=== PATIENT | female | born 1945 | race Caucasian/White ===

== ENCOUNTER 2025-04-10 15:25 | Outpatient (AMB) | payer OTHER, SELFPAY ==
--- OUTSIDE RECORDS SUMMARY | 2025-04-10 15:30 | XMS_ITS | Encounter Summary ---
Author Organization [facility] Address [address] [place] [address] Care Team Providers Care Polymer Chemist Name Role Phone Dante Medina NP Primary Care Provider [phone] Reason for Visit * Consultation (Routine) - Authorized Specialty Diagnoses / Procedures Referred By Felicita rodgers Referred To Contact Neurology Diagnoses Cerebral amyloid angiopathy ([facility] V24, [facility] V28) History of CVA (cerebrovascular accident) Alzheimer's disease ([facility] V24, [facility] V28) Dante Medina NP [address] [address] Phone: tel: fax:[phone] [facility] [address] Phone: tel: Referral ID Status Reason Start Date Expiration Date Visits Requested Visits Authorized [id number] Authorized Specialty Services Required 01/16/2025 01/16/2026 1 1 Encounter Details Date Type Department Care Team (Late st Contact Info) Description 04/10/2025 3:30 PM EST [facility] External Visit [facility] [address] [place] [id number] Social History Tobacco Use Types Packs/Day Years Used Date Smoking Tobacco: Never Assessed Comments Unknown Sex and Gender Information Value Date Recorded Sex Assigned at Not on file Legal Sex Female 2:58 AM EST Gender Identity Not on file Sexual Orientation Not on file documented as of this encounter Plan of Treatment Not on file documented as of this encounter Visit Diagnoses Not on filedocumented in this encounter Orders Outpatient Referral Count Last Ordered Date Fir st Ordered Date AMB REFERRAL TO NEUROLOGY 1 04/10/2025 documented in this encounter Care Teams Polymer Chemist Relationship Specialty Start Date End Date Dante Medina NP [address] [place] [address] PCP - General [facility] 07/17/24 documented as of this encounter
--- NOTE | 2025-04-10 15:31 | MHC.OFFVIS ---
Intake Visit Reasons: CVA/Alzheimer's/Cerebral Amyloid Angiopathy HPI Comments Details: The patient is an 79 year old individual presenting for a neurology consultation for dementia. The patient was first diagnosed with dementia in 2011 following a workup for recurrent, transient stroke-like episodes that lasted 20-30 minutes with complete recovery. The workup at that time included brain MRIs and biopsies, which also led to a diagnosis of cerebral amyloid angiopathy (CAA). The patient's memory loss has been gradually progressive over the last 12 years. Functionally, the patient has not driven since 2019 or earlier and is unable to manage finances. The patient lives at home with the patient's and has supervision from family. Behavioral symptoms include episodes of waking in the middle of the night, getting fully dressed, and believing they are going somewhere, which has been occurring for about a year. The patient also experiences confusion and occasional failure to recognize family members, including daughters. The family describes the patient's mood as generally okay, and denies hallucinations or significant anxiety. Relevant past medical history includes overactive bladder, for which the patient takes oxybutynin and wears briefs due to incontinence. The patient's identical twin sister also has a diagnosis of CAA. The patient's maternal grandmother had Alzheimer's disease. Current medications include donepezil 10 mg, divalproex acid, lisinopril 5 mg, metoprolol, and oxybutynin. Review of Systems Narrative - Neurological: Reports progressive memory loss for over 12 years and occasional confusion. - Denies hallucinations or migraines. - Psychiatric: Reports occasional episodes of nocturnal wandering. - Mood is described as okay-bridger , but with episodes of frustration. - Denies significant anxiety. - Genitourinary: Reports overactive bladder and incontinence. Assessment & Plan Assessment & Plan (1) Alzheimer dementia: Code(s): G30.9 - Alzheimer's disease, unspecified; F02.80 - Dementia in other diseases classified elsewhere, unspecified severity, without behavioral disturbance, psychotic disturbance, mood disturbance, and anxiety Category: Medical Qualifiers: Alzheimer's disease onset: late onset Dementia severity: moderate Dementia behavioral or psychological symptom: without behavioral, psychotic, or mood disturbance or anxiety Qualified Code(s): G30.1 - Alzheimer's disease with late onset; F02.B0 - Dementia in other diseases classified elsewhere, moderate, without behavioral disturbance, psychotic disturbance, mood disturbance, and anxiety Plan Impression: 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 Family stated that she has been diagnosed with cerebral amyloid angiopathy but details and imaging were not available. Recommendations: 1. Reassurance and education of the family about dementia and its different symptoms and there management 2. Continue donepezil 10 mg a day 3. Continue Divalproic acid 250 mg 1 at night 4. Start memantine 5 mg twice a day 5. Please bring CTA of her brain scan for review at next time I discussed with the family that the patient's clinical picture is most consistent with moderately severe Alzheimer's disease. I explained that at this advanced stage, the goal of treatment is symptomatic support, and the patient is not a candidate for newer medications that slow disease progression. I recommended continuing donepezil and adding memantine to help with cognitive symptoms. We discussed the prior diagnosis of cerebral amyloid angiopathy (CAA), and I explained that I need to review the patient's old brain MRI scans to comment on this, but that it would likely not change the current management plan. I addressed the family's questions about hereditary risk, agreeing that testing is of little value since there are no effective preventative cures. I provided guidance on managing behaviors, such as avoiding situations that cause frustration and not confronting the patient's confusion. I instructed the family to obtain the prior MRI on a CD and to schedule a follow-up appointment in about one month. Coding Level of Care Code New Pt Level 4 (62202) Diagnoses Moderate late onset Alzheimer's dementia without behavioral disturbance, psychotic disturbance, mood disturbance, or anxiety G30.1; F02.B0 Alzheimer's disease onset: late onset Dementia severity: moderate Dementia behavioral or psychological symptom: without behavioral, psychotic, or mood disturbance or anxiety Time Spent (min) 60
--- OUTSIDE RECORDS SUMMARY | 2025-04-10 17:45 | XMS_ITS | Clinical Summary ---
Author Organization [address] Address [address] [place] [address] Phone Care Team Providers Care Real Estate Leasing Manager Name Role Phone Dante Medina NP Primary Care Provider [phone] Medications calcium carbonate EX (TUMS EX) 300 mg (750 mg) chewable tabletIndications: post-menopausal osteoporosis prevention Chew 1 tablet (300 mg total) 1 (one) time each day. Take this medication at least two hours before or two hours after all other oral medications 30 tablet 08/09/19 25 Active cholecalciferol (VITAMIN D-3) 50 mcg (2,000 unit) tabletIndications: vitamin D deficiency Take 1 tablet (2,000 Units total) by mouth 1 (one) time each day. 30 tablet 08/09/19 25 Active divalproex (DEPAKOTE ER) 250 mg 24 hr tabletIndications: Nonintractable epilepsy without status epilepticus, unspecified epilepsy type (CMS/HCC V24, CMS/HCC V28) Take 1 tablet (250 mg total) by mouth at bedtime. 30 tablet 08/09/19 25 Active donepeziL (ARICEPT) 10 mg tabletIndications: Moderate Alzheimer's dementia without behavioral disturbance, psychotic disturbance, mood disturbance, or anxiety, unspecified timing of dementia onset (CMS/HCC V24, CMS/HCC V28) Take 1 tablet (10 mg total) by mouth at bedtime. 30 tablet 08/09/19 25 Active horse chestnut 300 mg capsuleIndications :Restless leg syndrome Take 2 capsules by mouth at bedtime. 56 each 08/09/19 25 026 Active lisinopriL (PRINIVIL,ZESTRIL) 5 mg tabletIndications: Essential hypertension Take 1 tablet (5 mg total) by mouth 1 (one) time each day. 30 tablet 08/09/19 25 Active metoprolol tartrate (LOPRESSOR) 25 mg tabletIndications: Essential hypertension Take 1 tablet (25 mg total) by mouth 2 (two) times a day. 56 tablet 08/09/19 25 026 Active oxyBUTYnin XL (DITROPAN-XL) 15 mg 24 hr tabletIndications: Overactive bladder Take 1 tablet (15 mg total) by mouth 1 (one) time each day. 30 each 08/09/19 25 026 Active simvastatin (ZOCOR) 10 mg tabletIndications: Mixed hyperlipidemia Take 1 tablet (10 mg total) by mouth at bedtime. 30 tablet 08/09/19 25 026 Active saccharomyces boulardii (Florastor) 250 mg capsuleIndications :Irritable bowel syndrome with both constipation and diarrhea Take 1 capsule (250 mg total) by mouth 2 (two) times a day. 60 capsule 02/25/20 Active Active Problems Problem Noted Date Diagnosed Date Acquired bilateral flat feet 01/16/2025 Assessment & Plan (01/16/2025 3:52 PM EDT): Chart review revealed: has acquired flat foot deformity left foot. Qualifies for diabetic shoes. Par will f/u with [facility], will CTM. Female cystocele 01/16/2025 Assessment & Plan (01/16/2025 3:55 PM EDT): Chart review: Par has diagnosis of cystocele. Par is w/o complaints of pelvic pressure. Vaginal exam was not performed in clinic on this encounter, will CTM. Primary osteoarthritis of both knees 08/01/2024 Assessment & Plan (01/16/2025 3:37 PM EDT): Chronic condition, stable, asymptomatic. Par ambulated with this provider by her side down the clinic hallway and back to her seat w/o complaint of joint pain, will continue current medications and CTM. Assessment & Plan (08/01/2024 1:51 PM EDT): Chronic degenerative process, currently stable, will continue current medications and monitor. Cerebral amyloid angiopathy (CMS/HCC V24, CMS/HC C V28) 07/29/2024 Overview (07/29/2024): History of craniotomy and biopsy showed sporadic cerebral angiopathy which is linked to the diagnosis of Alzheimer's dementia Assessment & Plan (01/16/2025 3:30 PM EDT): Chart review: Biopsy from 2011 did not show amyloid 2history of SAH x 2 with possible amyloid; is not to take asa. Plan: request further past medical records from [facility] and former PCP Dr. João Roca MD. Neurology referral ordered, to take place after record retrieval. Par, DTR, stated understanding and agreed with plan. Assessment & Plan (08/01/2024 1:49 PM EDT): History of craniotomy and biopsy showed sporadic cerebral angiopathy which is linked to the diagnosis of Alzheimer's dementia Gait instability 07/29/2024 Overview (07/29/2024): Historical diagnosis, gait during this encounter was stable. Assessment & Plan (01/16/2025 3:41 PM EDT): Brendon has a wide based, slow gait. She maintained balance, although she is at risk for falls. Due to her AD dementia Par would not remember to use an assistive device to ambulate. This provider encouraged reminding Par to use can or walker when ambulating to prevent falls. DTR and Par's stated understanding and agreed with plan. Assessment & Plan (08/01/2024 1:52 PM EDT): Historical diagnosis, gait during this encounter was stable. Type 2 diabetes mellitus, [facility] long-term current use of insulin ([facility] V24, [facility] V28) 07/29/2024 Overview (07/29/2024): Diet controlled diabetes, will check her A1C and recommend medical treatment as needed. Assessment & Plan (01/16/2025 3:39 PM EDT): DTR and both stated that Brendon does not have diabetes. Labs this encounter include A1C, will continue current medications and continue to monitor. Assessment & Plan (08/01/2024 1:50 PM EDT): Diet controlled diabetes, will check her A1C and recommend medical treatment as needed. Esophageal achalasia 07/29/2024 Overview (07/29/2024): Diana is s/p esophageal dilistation. She tolerates regular diet and avoid rice which she has had difficulty swallowing in the past. Assessment & Plan (01/16/2025 3:33 PM EDT): Per DTR, Brendon did have an esophageal dilation and motility study which showed decreased motility. Bother DTR and Brendon's stated that she does tolerate soft diet w/meat cut into small pieces w/no coughing or choking. Plan: Continue soft diet, small precut food, thin liquids, all meals should be attended and monitored. Brendon's and DTR stated understanding and agree with plan. Assessment & Plan (08/01/2024 1:52 PM EDT): Diana is s/p esophageal dilistation. She tolerates regular diet and avoid rice which she has had difficulty swallowing in the past. Moderate Alzheimer's dementi a without behavioral disturbance, psychotic disturbance, mood disturbance, or anxiety ([facility] V24, [facility] V28) 07/24/2024 Overview (07/24/2024): SLUMS score during this exam = 6/30 [1-20 = dementia], currently baseline, will continue current medications and monitor. Assessment & Plan (01/16/2025 3:24 PM EDT): Chronic condition, stable, on Aricept, will continue current medications, neurology referral pending, past medical documentation requested from previous PCP, Dr. João Roca MD from [facility] Medicine, will CTM. Essential hypertension 07/24/2024 Overview (07/24/2024): Normotensive on medications, will continue all current medicaitons and monitor. Assessment & Plan (01/16/2025 3:25 PM EDT): Normotensive on exam. Chronic condition, stable, asymptomatic, will continue current medications and CTM. Overactive bladder 07/24/2024 Overview (07/24/2024): Chronic condition, currently controlled on medication, will continue oxybutinin and monitor. Assessment & Plan (01/16/2025 3:35 PM EDT): Chronic condition, stable with Adult briefs, continue frequent brief change to avoid maceration/infection. and DTR state understanding and agree with plan. She is on Oxybutynin 15 mg PO QD, continue current medications and CTM. Mixed hyperlipidemia 07/24/2024 Overview (07/24/2024): Controlled on simvastatin, Lipid panel from this encounter is pending, will continue to monitor. Assessment & Plan (01/16/2025 3:38 PM EDT): Last Lipid panel in July 2024 WNL. Chronic condition, stable, will continue current medications and CTM. Restless leg syndrome 07/24/2024 Overview (07/24/2024): Chronic, stable condition. Dicontinued quinine and started horse chestnut seed extract, will continue monitor Assessment & Plan (01/16/2025 3:35 PM EDT): Chronic condition, stable, improving on medication, will continue current medications and CTM. Vitamin D deficiency 07/24/2024 Overview (07/24/2024): Chronic condition, currently stable on VIT D3 replacement therayp, continue current therapy and monitor. Assessment & Plan (01/16/2025 3:30 PM EDT): Chronic condition, stable, will continue current medications and CTM. Age related osteoporosis 07/24/2024 Overview (07/24/2024): No recent fractures, continue current VIT D, Calcium therapy. Upon next clinic visit in 6 months or sooner if needed, will discuss future bone denisty screening Assessment & Plan (01/16/2025 3:36 PM EDT): Plan: Chronic condition, stable, asymptomatic, will continue current medications and CTM. Continue VIT D and Calcium therapy and CTM. Resolved Problems Problem Noted Date Diagnosed Date Resolved Date Nonintractable epilepsy with out status epilepticus ([facility] V24, [facility] V28) 07/24/2024 0 01/16/2025 Overview (07/24/2024): and DTR state they have never seen her have a seizure. she did have brain surgery for what they thought were transient strokes. Abdominal bloating 07/24/2024 Overview (07/24/2024): Chronic, intermittent problem, most likel slow transit, continue probiotic. Encounters Date Type Department Care Team Description 04/10/2025 3:30 PM EST [facility] External Visit [address] [phone] 03/12/2025 11:00 AM EDT Clinical Support [address] [phone] Hetal Bneson LPN 02/21/2025 11:30 AM EDT Clinical Support [address] [phone] Hetal Benson LPN 01/24/2025 Plan of Care Documentation [address] [phone] 01/16/2025 1:00 PM EDT [facility] Assessment [address] [phone] Idania Martinez RN Adult general medical examination (Primary Dx) 01/16/2025 1:00 PM EDT P[facility] Assessment [address] [phone] Dante Medina NP Primary hypertension (Primary Dx); Other hyperlipidemia; Healthcare maintenance; Cerebral amyloid angiopathy ([facility] V24, [facility] V28); History of CVA (cerebrovascular accident); Alzheimer's disease ([facility] V24, [facility] V28); Moderate Alzheimer's dementia of other onset without behavioral disturbance, psychotic disturbance, mood disturbance, or anxiety ([facility] V24, [facility] V28); Essential hypertension; Vitamin D deficiency; Esophageal achalasia; Overactive bladder; Restless leg syndrome; Age-related osteoporosis without current pathological fracture; Primary osteoarthritis of both knees; Mixed hyperlipidemia; Type 2 diabetes mellitus without complication, without long-term current use of insulin ([facility] V24, [facility] V28); Gait instability; Acquired bilateral flat feet; Female cystocele from Last 3 Months Immunizations Immunization Administration Dates Next Due COVID-19 (Moderna/Spikevax) 12yo and older 03/13/2025 Influenza trivalent, 0.5mL ( Fluad) 65yo and older 02/22/2025 Pneumococcal conjugate 13 va lent (Prevnar 13, PCV13) 2mo and older 08/23/2014,03/13/2007 Tdap Tetanus diptheria acell ular pertussis (Boostrix; Adacel) 7yo and older 07/24/2024(Deferred: Other - Just ordered, will document when it arrived from pharmacy and is adminstered) Zoster Live 05/16/2012 Zoster recombinant (Shingrix ) 19yo and older 03/16/2013 Surgical History Surgery Date Site/Laterality Comments BRAIN SURGERY EYE SURGERY Medical History Medical History Date Comments Hypercholesteremia Hypertension Pneumonia Seizures ([facility] V24, [facility] V28) Achalasia Alzheimer's dementia ([facility] V24, [facility] V28) Cerebral amyloid angiopathy ([facility] V24, [facility] V28) Epilepsy ([facility] V24, [facility] V28) Paroxysmal A-fib ([facility] V2 4, [facility] V28) 2024 PMHx, nothing found in chart review, family unaware of diagnosis History of cystocele 2024 from chart review. Diabetes mellitus ([facility] V 24, [facility] V28) diet controlled Arthritis osteoarthritis m ultple joints Achalasia 07/24/2024 Historical diagn osis. She is s/p esophageal dilitation Social History Tobacco Use Types Packs/Day Years Used Date Smoking Tobacco: Never Assessed Comments Unknown Sex and Gender Information Value Date Recorded Sex Assigned at Not on file Legal Sex Female 2:58 AM EST Gender Identity Not on file Sexual Orientation Not on file Obstetrics History Last Filed Vital Signs Vital Sign Reading Time Taken Comments Blood Pressure 122/78 01/16/2025 3:56 PM EDT Pulse 77 01/16/2025 3:56 PM EDT Temperature 36.3 C (97.3 F) 01/16/2025 3:56 PM EDT Respiratory Rate 19 01/16/2025 3:56 PM EDT Oxygen Saturation 95% 01/16/2025 3:56 PM EDT Inhaled Oxygen Concentration - - Weight 61.7 kg (136 lb) 01/16/2025 3:56 PM EDT Height 157.5 cm (5' 2.01 ) 01/16/2025 3:56 PM ED T Body Mass Index 24.87 01/16/2025 3:56 PM EDT Plan of Treatment Health Maintenance Due Date Last Done Comments Diabetes: Annual Foot Exam 1955 Diabetes: Annual Retina Eye Exam 1955 Zoster Vaccines (3 of 3) 05/11/2013 03/16/2013, 05/2012 Pneumococcal Vaccine: 50+ Years (2 of 2 - PPSV23, PCV20, or PCV21) 10/18/2014 08/23/2014, 03/13/2007, 03/13/2007 DTaP,Tdap,and Td Vaccines (3 - Td or Tdap) 04/02/2018 04/02/2008, 05/30/2001 RSV Immunization Adult Patients (1 - 1-dose 75+ series) 07/19/2019 Falls Risk Assessment 03/21/2024 Osteoporosis Screening (Bone Density Screening) 03/21/2024 Social Influencers of Health Screening 03/21/2024 Depression Screening 05/16/2024 Diabetes: Annual Urine Albumin-Creatinine Ratio (uACR) 07/29/2024 Diabetes: Blood Sugar Control Test (HGBA1C) 07/16/2025 01/16/2025 COVID-19 Vaccine ( season) 2025 03/13/2025, 02/15/2024, 05/23/2023, Additional history exists Diabetes: Annual GFR (Glomerular Filtration Rate) 01/16/2026 01/16/2025, 07/24/2024, 03/22/2024 Hypertension/CHF/CAD Annual BMP Blood Test 01/16/2026 01/16/2025, 07/24/2024, 03/22/2024 Cholesterol Screening (Lipid Panel) 07/24/2029 07/24/2024 Influenza Vaccine Completed 02/22/2025, , 05/23/2023, Additional history exists HIB Vaccines Aged Out No longer eligi ble based on patient's age to complete this topic HPV Vaccines Aged Out No longer eligi ble based on patient's age to complete this topic Hepatitis A Vaccines Aged Out No long er eligible based on patient's age to complete this topic Hepatitis B Vaccines Aged Out No long er eligible based on patient's age to complete this topic IPV Vaccines Aged Out No longer eligi ble based on patient's age to complete this topic MMR Vaccines Aged Out No longer eligi ble based on patient's age to complete this topic Meningococcal ACWY Vaccine Aged Out N o longer eligible based on patient's age to complete this topic Meningococcal B Vaccine Aged Out No l onger eligible based on patient's age to complete this topic RSV Immunization Patients Under 20 months Aged Out No longer eligible based on patient's age to complete this topic Varicella Vaccines Aged Out No longer eligible based on patient's age to complete this topic Procedures Procedure Name Priority Date/Time Associated Diagnosis Comments CBC WITH AUTO DIFFERENTIAL Routine 01/16/2025 2:40 PM EDT Primary hypertension Other hyperlipidemia Healthcare maintenance CBC AND DIFFERENTIAL Routine 01/16/2025 2:40 PM EDT Primary hypertension Other hyperlipidemia Healthcare maintenance COMPREHENSIVE METABOLIC PANEL Routine 01/16/2025 2:40 PM EDT Primary hypertension Other hyperlipidemia Healthcare maintenance HEMOGLOBIN A1C Routine 01/16/2025 2:40 PM EDT Primary hypertension Other hyperlipidemia Healthcare maintenance LIPID PANEL WITH REFLEX TO DIRECT LDL Routine 07/24/2024 4:13 PM EDT Mixed hyperlipidemia from Last 3 Months or Most Recently Relevant to Health Maintenance Results * (ABNORMAL) CBC auto differential (01/16/2025 2:40 PM EDT) [facility] WBC 6.4 4.8 - 10.8 K/mcL LAB HEMETOLOGY METHOD [facility] RBC 4.90(H) 3.80 - 4.80 M/mcL LAB HEMETOLOGY METHOD 01/16/2025 6:00 PM [facility] Hemoglobin 13.9 11.5 - 16.0 g/dL LAB HEMETOLOGY METHOD 01/16/2025 6:00 PM [facility] Hematocrit 43.7 35.0 - 47.0 % LAB HEMETOLOGY METHOD 01/16/2025 6:00 PM [facility] MCV 89.9 79.0 - 98.0 FL LAB HEMETOLOGY METHOD 01/16/2025 6:00 PM [facility] MCH 28.6 27.0 - 32.0 pcg LAB HEMETOLOGY METHOD 01/16/2025 6:00 PM [facility] MCHC 31.8(L) 32.0 - 37.0 g/dL LAB HEMETOLOGY METHOD 01/16/2025 6:00 PM [facility] RDW 14.5 11.0 - 15.0 % LAB HEMETOLOGY METHOD 01/16/2025 6:00 PM [facility] Platelets 254 130 - 400 K/mcL LAB HEMETOLOGY METHOD 01/16/2025 6:00 PM [facility] MPV 11.5(H) 7.0 - 11.0 FL LAB HEMETOLOGY METHOD 01/16/2025 6:00 PM [facility] NRBC 0.0 <1.0 % LAB HEMETOLOGY METHOD 01/16/2025 6:00 PM [facility] NRBC Absolute 0.00 <0.10 K/mcL LAB HEMETOLOGY METHOD 01/16/2025 6:00 PM [facility] Neutrophils Relative 59.4 % LAB HEMETOLOGY METHOD 01/16/2025 6:00 PM [facility] Lymphocytes Relative 32.3 % LAB HEMETOLOGY METHOD 01/16/2025 6:00 PM [facility] Monocytes Relative 6.6 % LAB HEMETOLOGY METHOD 01/16/2025 6:00 PM [facility] Eosinophils Relative 0.6 % LAB HEMETOLOGY METHOD 01/16/2025 6:00 PM [facility] Basophils Relative 0.8 % LAB HEMETOLOGY METHOD 01/16/2025 6:00 PM [facility] Immature Granulocytes Relative 0.3 % LAB HEMETOLOGY METHOD 01/16/2025 6:00 PM [facility] Neutrophils Absolute 3.77 1.50 - 7.00 K/mcL LAB HEMETOLOGY METHOD 01/16/2025 6:00 PM [facility] Lymphocytes Absolute 2.05 1.00 - 5.00 K/mcL LAB HEMETOLOGY METHOD 01/16/2025 6:00 PM [facility] Monocytes Absolute 0.42 0.20 - 1.00 K/mcL LAB HEMETOLOGY METHOD 01/16/2025 6:00 PM EDT [facility] Eosinophils Absolute 0.04 0.00 - 0.50 K/[facility] LAB HEMETOLOGY METHOD 01/16/2025 6:00 PM EDT [facility] Basophils Absolute 0.05 0.00 - 0.20 K/[facility] LAB HEMETOLOGY METHOD 01/16/2025 6:00 PM EDT [facility] Immature Granulocytes Absolute 0.02 0.00 - 0.03 K/[facility] LAB HEMETOLOGY METHOD 01/16/2025 6:00 PM EDT [facility] Blood Venous blood specimen / Unknown Venipuncture / Unknown 01/16/2025 2:40 PM EDT 01/16/2025 2:40 PM EDT us Dante Medina NP LAB BLOOD ORDERABLES Final Resul t Performing Organization Address City/[facility]/ZIP Co de Phone Number [facility] [address] [place] [address], * (ABNORMAL) Hemoglobin A1c (01/16/2025 2:40 PM EDT) Hemoglobin A1C 6.5(H) <6.5 % LAB CHEMISTRY METHOD 01/16/2025 8:34 PM EDT [facility] Mean Bld Glu Estim. 140 mg/dL LAB CHEMISTRY METHOD 01/16/2025 8:34 PM EDT [facility] Blood Venous blood specimen / Unknown Venipuncture / Unknown 01/16/2025 2:40 PM EDT 01/16/2025 2:40 PM EDT us Dante Medina NP LAB BLOOD ORDERABLES Final Resul t Performing Organization Address City/[facility]/ZIP Co de Phone Number [facility] [address] [place] [address], [place] [phone] * (ABNORMAL) Comprehensive metabolic panel (01/16/2025 2:40 PM EDT) Sodium 138 133 - 145 mmol/L LAB CHEMISTRY METHOD 01/16/2025 6:08 PM [facility] Potassium 3.8 3.5 - 5.5 mmol/L LAB CHEMISTRY METHOD 01/16/2025 6:08 PM [facility] Chloride 104 96 - 110 mmol/L LAB CHEMISTRY METHOD 01/16/2025 6:08 PM [facility] CO2 28 21 - 32 mmol/L LAB CHEMISTRY METHOD 01/16/2025 6:08 PM [facility] Anion Gap 6 3 - 11 LAB CHEMISTRY METHOD 01/16/2025 6:08 PM [facility] Glucose 108(H) 70 - 100 mg/dL LAB CHEMISTRY METHOD 01/16/2025 6:08 PM [facility] BUN 16 5 - 25 mg/dL LAB CHEMISTRY METHOD 01/16/2025 6:08 PM [facility] Creatinine 0.68 0.50 - 1.10 mg/dL LAB CHEMISTRY METHOD 01/16/2025 6:08 PM [facility] eGFR 88 >=60 mL/min/1. 73m2 LAB CHEMISTRY METHOD 01/16/2025 6:08 PM [facility] Comment:Calculation based on the Chronic Kidney Disease Epidemiology Collaboration (CKD-EPI) equation refit without adjustment for race. BUN/Creatinine Ratio 23.5 LAB CHEMISTRY METHOD 01/16/2025 6:08 PM [facility] Calcium 9.1 8.5 - 10.5 mg/dL LAB CHEMISTRY METHOD 01/16/2025 6:08 PM [facility] AST (SGOT) 22 10 - 42 unit/L LAB CHEMISTRY METHOD 01/16/2025 6:08 PM [facility] ALT (SGPT) 36 10 - 60 unit/L LAB CHEMISTRY METHOD 01/16/2025 6:08 PM [facility] Alkaline Phosphatase 138(H) 42 - 121 unit/L LAB CHEMISTRY METHOD 01/16/2025 6:08 PM [facility] Total Protein 7.0 6.0 - 8.0 g/dL LAB CHEMISTRY METHOD 01/16/2025 6:08 PM [facility] Albumin 4.0 3.2 - 5.0 g/dL LAB CHEMISTRY METHOD 01/16/2025 6:08 PM [facility] Total Bilirubin 0.4 0.0 - 1.4 mg/dL LAB CHEMISTRY METHOD 01/16/2025 6:08 PM [facility] Blood Venous blood specimen / Unknown Venipuncture / Unknown 01/16/2025 2:40 PM EDT 01/16/2025 2:40 PM EDT us Dante Medina [employer] LAB BLOOD ORDERABLES Final Resul t [facility] [address] [place] [address], * Lipid panel with reflex to direct LDL (07/24/2024 4:13 PM EDT) Cholesterol 176 0 - 200 mg/dL LAB CHEMISTRY METHOD 07/24/2024 6:37 PM [facility] Triglycerides 129 0 - 150 mg/dL LAB CHEMISTRY METHOD 07/24/2024 6:37 PM [facility] HDL 85 >=40 mg/dL LAB CHEMISTRY METHOD 07/24/2024 6:37 PM [facility] LDL Calculated 65 0 - 100 mg/dL LAB CHEMISTRY METHOD 07/24/2024 6:37 PM [facility] VLDL Cholesterol Freddy 25.8 mg/dL LAB CHEMISTRY METHOD 07/24/2024 6:37 PM EDT [facility] Non HDL Chol. (LDL+VLDL) 91 <145 mg/dL LAB CHEMISTRY METHOD 07/24/2024 6:37 PM EDT [facility] Chol/HDL Ratio 2.1 0.0 - 4.4 LAB CHEMISTRY METHOD 07/24/2024 6:37 PM EDT [facility] Blood Venous blood specimen / Unknown Venipuncture / Unknown 07/24/2024 4:13 PM EDT 07/24/2024 4:13 PM EDT us Dante Medina [employer] LAB BLOOD ORDERABLES Final Resul t [facility] [address] [place] [address], from Last 3 Months or Most Recently Relevant to Health Maintenance Insurance MEDICAID - [place] MEDICARE [facility] * Guarantor: [facility] Account Type Relation to Patient Date of Phone Billing [place] [address] [facility] Advance Directives Documents on File Type Date Recorded Patient Health Program Analyst Expl anation Advance Directives and Living Will 03/11/2025 11:07 AM 09/07/10 HEALTH CARE PROXY Advance Directives and Living Will 01/31/2025 9:29 AM 07/02/24 HEALTH CARE PROXY Care Teams Real Estate Leasing Manager Relationship Specialty Start Date End Date Dante Medina NP [address] [place] [address] PCP - General VIDYA 07/17/24
--- OUTSIDE RECORDS SUMMARY | 2025-04-10 17:45 | XMS_ITS | Encounter Summary ---
Author Organization [employer] [facility] Address [address] [place] [address] Care Team Providers Care Dispatcher Automobile Rental Name Role Phone Dante Medina NP Primary Care Provider Encounter Details Date Type Department Care Team (Late st Contact Info) Description 09/25/2024 [facility] Clinic [address] [place] [phone] Beatrice Elizondo RN Social History Tobacco Use Types Packs/Day Years [...] Diagnoses Not on filedocumented in this encounter Care Teams Dispatcher Automobile Rental Relationship Specialty Start Date End Date Dante Medina NP [address] [place] [address] PCP - General VIDYA 07/17/24 documented as of this encounter
--- OUTSIDE RECORDS SUMMARY | 2025-04-10 17:45 | XMS_ITS | Encounter Summary ---
Author Organization [facility] Address [address] [place] [address] Care Team Providers Care Truant Officer Name Role Phone Dante Medina NP Primary Care Provider [phone] Encounter Details Date Type Department Care Team (Late st Contact Info) Description 03/21/2024 Lab Requisition [facility] - Main Lab [address] [facility] [place] [phone] Kelsea Powell MD [address] [place] [address] Type 2 diabetes mellitus without complications (CMS/HCC V24, CMS/HCC V28); Urinary tract infection, site not specified Social History Tobacco Use Types Packs/Day Years Used Date Smoking Tobacco: Never Assessed Comments Unknown Sex and Gender Information Value Date Recorded Sex Assigned at Not on file Legal Sex Female 2:58 AM EST Gender Identity Not on file Sexual Orientation Not on file documented as of this encounter Plan of Treatment Not on file documented as of this encounter Procedures Procedure Name Priority Date/Time Associated Diagnosis Comments COMPLETE BLOOD COUNT Routine 03/22/2024 9:12 AM EST Type 2 diabetes mellitus without complications (CMS/HCC) Urinary tract infection, site not specified BASIC METABOLIC PANEL Routine 03/22/2024 9:12 AM EST Type 2 diabetes mellitus without complications (CMS/HCC) Urinary tract infection, site not specified documented in this encounter Results * (ABNORMAL) Basic metabolic panel (03/22/2024 9:12 AM EST) Sodium 136 133 - 145 mmol/L LAB CHEMISTRY METHOD 03/22/2024 11:53 AM [facility] Potassium 4.6 3.5 - 5.5 mmol/L LAB CHEMISTRY METHOD 03/22/2024 11:53 AM [facility] Chloride 97 96 - 110 mmol/L LAB CHEMISTRY METHOD 03/22/2024 11:53 AM [facility] CO2 30 21 - 32 mmol/L LAB CHEMISTRY METHOD 03/22/2024 11:53 AM [facility] Anion Gap 9 3 - 11 LAB CHEMISTRY METHOD 03/22/2024 11:53 AM [facility] Glucose 147(H) 70 - 100 mg/dL LAB CHEMISTRY METHOD 03/22/2024 11:53 AM [facility] BUN 12 5 - 25 mg/dL LAB CHEMISTRY METHOD 03/22/2024 11:53 AM [facility] Creatinine 0.66 0.50 - 1.10 mg/dL LAB CHEMISTRY METHOD 03/22/2024 11:53 AM [facility] eGFR 89 >=60 mL/min/1. 73m2 LAB CHEMISTRY METHOD 03/22/2024 11:53 AM [facility] Comment:Calculation based on the Chronic Kidney Disease Epidemiology Collaboration (CKD-EPI) equation refit without adjustment for race. BUN/Creatinine Ratio 18.2 LAB CHEMISTRY METHOD 03/22/2024 11:53 AM [facility] Calcium 9.5 8.5 - 10.5 mg/dL LAB CHEMISTRY METHOD 03/22/2024 11:53 AM [facility] Blood Venous blood specimen / Unknown Venipuncture / Unknown 03/22/2024 9:12 AM EST 03/22/2024 10:44 AM EST us Kelsea Powell MD LAB BLOOD ORDERABLES Final Resul t [facility] [address] [place] [address], [place] [phone] * (ABNORMAL) Complete blood count (03/22/2024 9:12 AM EST) WBC 11.0(H) 4.8 - 10.8 K/mcL LAB HEMETOLOGY METHOD 03/22/2024 11:05 AM [facility] RBC 4.80 3.80 - 4.80 M/mcL LAB HEMETOLOGY METHOD 03/22/2024 11:05 AM [facility] Hemoglobin 13.1 11.5 - 16.0 g/dL LAB HEMETOLOGY METHOD 03/22/2024 11:05 AM [facility] Hematocrit 41.5 35.0 - 47.0 % LAB HEMETOLOGY METHOD 03/22/2024 11:05 AM [facility] MCV 86.5 79.0 - 98.0 FL LAB HEMETOLOGY METHOD 03/22/2024 11:05 AM [facility] MCH 27.3 27.0 - 32.0 pcg LAB HEMETOLOGY METHOD 03/22/2024 11:05 AM [facility] MCHC 31.6(L) 32.0 - 37.0 g/dL LAB HEMETOLOGY METHOD 03/22/2024 11:05 AM [facility] RDW 14.4 11.0 - 15.0 % LAB HEMETOLOGY METHOD 03/22/2024 11:05 AM [facility] Platelets 388 130 - 400 K/mcL LAB HEMETOLOGY METHOD 03/22/2024 11:05 AM [facility] MPV 9.5 7.0 - 11.0 FL LAB HEMETOLOGY METHOD 03/22/2024 11:05 AM EST [facility] NRBC 0.0 <1.0 % LAB HEMETOLOGY METHOD 03/22/2024 11:05 AM EST [facility] NRBC Absolute 0.00 <0.10 K/mcL LAB HEMETOLOGY METHOD 03/22/2024 11:05 AM EST [facility] Blood Venous blood specimen / Unknown Venipuncture / Unknown 03/22/2024 9:12 AM EST 03/22/2024 10:44 AM EST us Kelsea Powell MD LAB BLOOD ORDERABLES Final Resul t [facility] [address] [place] [address], documented in this encounter Visit Diagnoses Diagnosis Type 2 diabetes mellitus without complications (CMS/HCC V24, CMS/HCC V28) Urinary tract infection, site not specified documented in this encounter Care Teams Truant Officer Relationship Specialty Start Date End Date Dante Medina NP [address] [place] [address] PCP - General [facility] 07/17/24 documented as of this encounter
--- OUTSIDE RECORDS SUMMARY | 2025-04-10 17:45 | XMS_ITS | Encounter Summary ---
Author Organization [facility] Address [address] [place] [address] Care Team Providers Care Extract Mixer Name Role Phone Dante Medina NP Primary Care Provider [phone] Encounter Details Date Type Department Care Team (Late st Contact Info) Description 08/06/2024 [facility] Physical Therapy [address] [place] [phone] Magan, Ava, MASSOTHERAPIST Social History Tobacco Use Types Packs/Day Years [...] on filedocumented in this encounter Care Teams Extract Mixer Relationship Specialty Start Date End Date Dante Medina NP [address] [place] [address] PCP - General VIDYA 07/17/24 documented as of this encounter
--- OUTSIDE RECORDS SUMMARY | 2025-04-10 17:45 | XMS_ITS ---
Author Organization [address] Address [address] [place] [address] Phone Care Team Providers Care Thermodynamic Physicist Name Role Phone Dante Medina NP Primary Care Provider [phone] Program of [facility] Elderly Status:Enrolled (Active) Start date:07/14/2024 Enrollment date:07/14/2024 Related social drivers of health:Housing Instability, TH Health Literacy, Financial Risk, Transportation, Social Isolation, Food Risk Overview This episode will track [facility]ACE documentation. Case Team Name Relationship Phone Dante Medina HEAD END DESIZING MACHINE OPERATOR Nurse Practitioner [phone] Katherine Mckeon Recreational Therapist Leda Acosta RN Legal Secretary Receptionist Mira Alexander RN Legal Secretary Receptionist Reyna Perry DIRECTOR ONCOLOGY Registered Nurse Junior Wolf OT Occupational Therapist Hitesh Martinez RN Registered Nurse Jody Jean RD Dietitian Ariela Steven PT Physical Therapist Parrish Ge BARRELHEAD INSPECTOR Used Building Materials Yard Worker Katelynn Posey RN Legal Secretary Receptionist Sia Lozano RN Registered Nurse Amarilys Blair Used Building Materials Yard Worker Mary Mora [facility] Used Building Materials Yard Worker Bahman Goodson Spiritual Care Navya Rodríguez PT Physical Therapist Kaur Bobo OT Occupational Therapist Haylie YEPEZW Used Building Materials Yard Worker Jack Flynn PT Physical Therapist Irlanda Cabrera MD Primary Care Provider Continued Care and Services Coordination
== END 2025-04-10 16:04 | disposition home or self-care (01) ==
PROVIDERS: PCP Nurse Practitioner; Visit Provider Psychiatry & Neurology Neurology
DX: G30.1 Alzheimer's disease with late onset (principal); F02.B0 Dementia in other diseases classified elsewhere, moderate, without behavioral disturbance, psychotic disturbance, mood disturbance, and anxiety
CPT/HCPCS: 99204

== ENCOUNTER → 2025-04-10 15:25 | Outpatient (BNVA) | payer OTHER, MEDICARE, SELFPAY | PROVIDERS: PCP Nurse Practitioner; Visit Provider Psychiatry & Neurology Neurology | DX: G30.1 Alzheimer's disease with late onset (principal); F02.B0 Dementia in other diseases classified elsewhere, moderate, without behavioral disturbance, psychotic disturbance, mood disturbance, and anxiety; Z79.899 Other long term (current) drug therapy | CPT/HCPCS: 99202 ==

== ENCOUNTER 2025-05-13 15:48 | Outpatient (AMB) | payer OTHER, SELFPAY ==
--- NOTE | 2025-05-13 15:51 | MHC.OFFVIS ---
Intake Visit Reasons: 1m HPI Comments Details: 79 year old individual with dementia. The patient was first diagnosed with dementia in 2012 following a workup for recurrent, transient stroke-like episodes that lasted 20-30 minutes with complete recovery. The workup at that time included brain MRIs and biopsies, which also led to a diagnosis of cerebral amyloid angiopathy (CAA). She is presenting for follow-up and management of her neurologic condition. Her last brain MRI was in 2012, when she was 67 years old, and a lot of tests, including EEGs, were also performed around that time. The report from the 2012 MRI described common white matter changes for her age, with no mention of amyloid. She has not had any further MRIs since 2012. Her current medications include donepezil and a small amount of Depakote. A recently prescribed medication, [facility] Review of Systems Narrative Forgetfulness. Physical Exam Neuro Other: Mental Status: She is alert and awake with normal spontaneity of speech fluency comprehension and affect. She probably recognize her daughters but could not tell me the names Cranial Nerves: CN II: Visual panda full to confrontation, visual acuity intact. CN III, IV, : Pupils equal, round, reactive to light and accommodation. Extraocular movements are normal. CN V: Facial sensation is normal. CN VII: Facial movements symmetrical. CN VIII: Hearing intact to bedside conversation is normal. CN IX, X: Palate elevates symmetrically. CN XI: Shoulder shrug and head turn symmetrical. CN XII: Tongue midline without atrophy or fasciculations. Extrapyramidal: Full facial expressions and blinking. No rigidity. Movements are appropriate with no tremor or abnormality. Speech: Normal; no dysarthria or tremor. Assessment & Plan Assessment & Plan (1) Alzheimer dementia: Comment: MRI brain WO at [facility] in 2012: Non specific b/l diff WM disease, ?MVD, ?R frontal sulcal abnormality (reported) Code(s): G30.9 - Alzheimer's disease, unspecified; F02.80 - Dementia in other diseases classified elsewhere, unspecified severity, without behavioral disturbance, psychotic disturbance, mood disturbance, and anxiety Category: Medical Qualifiers: Alzheimer's disease onset: late onset Dementia severity: moderate Dementia behavioral or psychological symptom: without behavioral, psychotic, or mood disturbance or anxiety Qualified Code(s): G30.1 - Alzheimer's disease with late onset; F02.B0 - Dementia in other diseases classified elsewhere, moderate, without behavioral disturbance, psychotic disturbance, mood disturbance, and anxiety Plan Impression: 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 Recommendations: 1. Reassurance and education of the family about dementia and its different symptoms and there management 2. Continue donepezil 10 mg a day 3. Continue Divalproic acid 250 mg 1 at night 4. Start memantine 5 mg twice a day 5. MRI brain WO to r/o amyloid angiopathy I explained to the patient and her health and nutrition specialist that the MRI from 2012 is too old to provide a clear picture of her current condition. I recommended a new brain MRI to be performed here, which will allow for a better assessment, specifically looking for signs of amyloid angiopathy. We will continue the current regimen of donepezil and Depakote, and I will add memantine, which works in conjunction with donepezil. Due to difficulties with sending the prescription electronically to the [facility] pharmacy, I provided a paper prescription for them to deliver. We will have a more detailed discussion after her new MRI results are available. 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
--- OUTSIDE RECORDS SUMMARY | 2025-05-13 17:42 | XMS_ITS | Clinical Summary ---
Author Organization [address] Address [address] [place] [address] Phone Care Team Providers Care Line Manager Name Role Phone Dante Medina NP Primary Care Provider [phone] Medications calcium carbonate EX (TUMS EX) 300 [...] unspecified timing of dementia onset (CMS/HCC V24, CMS/[facility]ER[facility] V28) Take 1 tablet (10 mg total) [...] for diabetic shoes. Par will f/u with [facility], will CTM. Female cystocele 01/16/2025 Assessment [...] current medications and monitor. Cerebral amyloid angiopathy 07/29/2024 Overview (07/29/2024): History of craniotomy and biopsy showed sporadic cerebral angiopathy which is linked to the diagnosis of Alzheimer's dementia Assessment & Plan (01/16/2025 3:30 PM EDT): Chart review: Biopsy from 2011 did not show amyloid 2history of SAH x 2 with possible amyloid; is not to take asa. Plan: request further past medical records from [facility] and former PCP Dr. João Roca [...] encounter was stable. Type 2 diabetes mellitus, wi thout long-term current use of insulin 07/29/2024 Overview (07/29/2024): Diet controlled diabetes, will [...] disturbance, psychotic disturbance, mood disturbance, or anxiety 07/24/2024 Overview (07/24/2024): SLUMS score during this exam = 6/30 [1-20 = dementia], currently baseline, will continue current medications and monitor. Assessment & Plan (01/16/2025 3:24 PM EDT): Chronic condition, stable, on Aricept, will continue current medications, neurology referral pending, past medical documentation requested from previous PCP, Dr. João Roca MD from [facility], will CTM. Essential hypertension 07/24/2024 Overview [...] Date Nonintractable epilepsy with out status epilepticus 07/24/2024 01/16/2025 Overview (07/24/2024): and DTR state they have never seen her have a seizure. she did have brain surgery for what they thought were transient strokes. Abdominal bloating 07/24/2024 Overview (07/24/2024): Chronic, intermittent problem, most likel slow transit, continue probiotic. Encounters Date Type Department Care Team Description 04/19/[address] [phone] Sia Lozano RN 04/10/2025 3:30 PM EST [facility] External Visit [address] [address] 03/12/2025 11:00 AM EDT Clinical Support [address] [address] Hteal Benson LPN 02/21/2025 11:30 AM EDT Clinical Support [address] [address] Hetal Benson LPN from Last 3 Months Immunizations Immunization Administration [...] History Date Comments Hypercholesteremia Hypertension Pneumonia Seizures ([facility] V24, [facility] V28) Achalasia Alzheimer's dementia ([facility]/ C V24, [facility] V28) Cerebral amyloid angiopathy ([facility] V24, [facility] V28) Epilepsy ([facility] V24, [facility] V28) Paroxysmal A-fib ([facility] V2 4, [facility] V28) 2024 PMHx, nothing found in chart review, family unaware of diagnosis History of cystocele 2024 from chart review. Diabetes mellitus ([facility] V 24, [facility] V28) diet controlled Arthritis osteoarthritis m ultple joints Achalasia 07/24/2024 Historical diagn osis. She is s/p esophageal dilitation Social History Tobacco Use Types Packs/Day Years Used Date Smoking Tobacco: Never Assessed Comments Unknown Sex and Gender Information Value Date Recorded Sex Assigned at Not on file Legal Sex Female 2:58 AM EST Gender Identity Not on file Sexual Orientation Not on file Last Filed Vital Signs Vital Sign Reading [...] Procedure Name Priority Date/Time Associated Diagnosis Comments COMPREHENSIVE METABOLIC PANEL Routine 01/16/2025 2:40 PM EDT Primary hypertension Other hyperlipidemia Healthcare maintenance HEMOGLOBIN A1C Routine 01/16/2025 2:40 PM EDT Primary hypertension Other hyperlipidemia Healthcare maintenance LIPID PANEL WITH REFLEX TO DIRECT LDL Routine 07/24/2024 4:13 PM EDT Mixed hyperlipidemia from Last 3 Months or Most Recently Relevant to Health Maintenance Results * (ABNORMAL) Hemoglobin A1c (01/16/2025 2:40 PM [...] NP LAB BLOOD ORDERABLES Final Resul t [facility] [address] [place] [address], * (ABNORMAL) Comprehensive metabolic panel (01/16/2025 2:40 PM EDT) Sodium 138 133 - 145 mmol/L LAB CHEMISTRY METHOD 01/16/2025 6:08 PM [facility] Potassium 3.8 3.5 - 5.5 mmol/L LAB CHEMISTRY METHOD 01/16/2025 6:08 PM [facility] Chloride 104 96 - 110 mmol/L LAB CHEMISTRY METHOD 01/16/2025 6:08 PM [facility] CO2 28 21 - 32 mmol/L LAB CHEMISTRY METHOD 01/16/2025 6:08 PM [facility] Anion Gap 6 3 - 11 LAB CHEMISTRY METHOD 01/16/2025 6:08 PM [facility] Glucose 108(H) 70 - 100 mg/dL LAB CHEMISTRY METHOD 01/16/2025 6:08 PM [facility] BUN 16 5 - 25 mg/dL LAB CHEMISTRY METHOD 01/16/2025 6:08 PM [facility] Creatinine 0.68 0.50 - 1.10 mg/dL LAB CHEMISTRY METHOD 01/16/2025 6:08 PM [facility] eGFR 88 >=60 mL/min/1. 73m2 LAB CHEMISTRY METHOD 01/16/2025 6:08 PM [facility] Comment:Calculation based on the Chronic Kidney Disease Epidemiology Collaboration (CKD-EPI) equation refit without adjustment for race. BUN/Creatinine Ratio 23.5 LAB CHEMISTRY METHOD 01/16/2025 6:08 PM [facility] Calcium 9.1 8.5 - 10.5 mg/dL LAB CHEMISTRY METHOD 01/16/2025 6:08 PM [facility] AST (SGOT) 22 10 - 42 unit/L LAB CHEMISTRY METHOD 01/16/2025 6:08 PM [facility] ALT (SGPT) 36 10 - 60 unit/L LAB CHEMISTRY METHOD 01/16/2025 6:08 PM EDT [facility] Alkaline Phosphatase 138(H) 42 - 121 unit/L LAB CHEMISTRY METHOD 01/16/2025 6:08 PM EDT [facility] Total Protein 7.0 6.0 - 8.0 g/dL LAB CHEMISTRY METHOD 01/16/2025 6:08 PM EDT [facility] Albumin 4.0 3.2 - 5.0 g/dL LAB CHEMISTRY METHOD 01/16/2025 6:08 PM EDT [facility] Total Bilirubin 0.4 0.0 - 1.4 mg/dL LAB CHEMISTRY METHOD 01/16/2025 6:08 PM EDT [facility] Blood Venous blood specimen / Unknown Venipuncture / Unknown 01/16/2025 2:40 PM EDT 01/16/2025 2:40 PM EDT us Dante Medina CALENDER WIND UP TENDER LAB BLOOD ORDERABLES Final Resul t [facility] [address] [place] [address], * Lipid panel with reflex to direct LDL (07/24/2024 4:13 PM EDT) Cholesterol 176 0 - 200 mg/dL LAB CHEMISTRY METHOD 07/24/2024 6:37 PM EDT [facility] Triglycerides 129 0 - 150 mg/dL LAB CHEMISTRY METHOD 07/24/2024 6:37 PM EDT [facility] HDL 85 >=40 mg/dL LAB CHEMISTRY METHOD 07/24/2024 6:37 PM EDT [facility] LDL Calculated 65 0 - 100 mg/dL LAB CHEMISTRY METHOD 07/24/2024 6:37 PM EDT [facility] VLDL Cholesterol Rfeddy 25.8 mg/dL LAB CHEMISTRY METHOD 07/24/2024 6:37 PM EDT [facility] Non HDL Chol. (LDL+VLDL) 91 <145 mg/dL LAB CHEMISTRY METHOD 07/24/2024 6:37 PM EDT [facility] Chol/HDL Ratio 2.1 0.0 - 4.4 LAB CHEMISTRY METHOD 07/24/2024 6:37 PM EDT [facility] Blood Venous blood specimen / Unknown Venipuncture / Unknown 07/24/2024 4:13 PM EDT 07/24/2024 4:13 PM EDT us Dante Medina CALENDER WIND UP TENDER LAB BLOOD ORDERABLES Final Resul t [facility] [address] [place] [address], from Last 3 Months or Most Recently Relevant to Health Maintenance Insurance MEDICAID - [place] MEDICARE [facility] * Guarantor: [facility] Account Type Relation to Patient Date of Phone Billing Address [place] [address] [facility] Advance Directives Documents on File Type Date Recorded Patient Drafter Topographical Expl anation Advance Directives and Living Will 03/11/2025 11:07 AM 09/07/10 [facility]ARE [employer] Advance Directives and Living Will 01/31/2025 9:29 AM 07/02/24 [facility]ARE [employer] Care Teams Line Manager Relationship Specialty Start Date End Date Dante Medina NP [address] [place] [address] PCP - General VIDYA 07/17/24
--- OUTSIDE RECORDS SUMMARY | 2025-05-13 17:42 | XMS_ITS | Encounter Summary ---
Author Organization [facility] Address [address] [place] [address] Care Team Providers Care Clerk Secretary Name Role Phone Dante Medina NP Primary Care Provider Encounter Details Date Type Department Care Team (Late st Contact Info) Description 09/25/2024 [facility] Clinic [address] [place] [phone] Beatrice Elizondo RN Social History Tobacco Use [...] on filedocumented in this encounter Care Teams Clerk Secretary Relationship Specialty Start Date End Date Dante Medina NP [address] [place] [address] PCP - General VIDYA 07/17/24 documented as of this encounter
--- OUTSIDE RECORDS SUMMARY | 2025-05-13 17:43 | XMS_ITS | Encounter Summary ---
Author Organization [facility] Address [address] [place] [address] Care Team Providers Care Type Disk Quality Control Supervisor Name Role Phone Dante Medina NP Primary Care Provider [phone] Encounter Details Date Type Department Care Team (Late st Contact Info) Description 08/06/2024 [facility] Physical Therapy [address] [place] [phone] Magan, Ava, ASBESTOS BRAKE LINING FINISHER HELPER Social History Tobacco Use Types Packs/Day Years [...] on filedocumented in this encounter Care Teams Type Disk Quality Control Supervisor Relationship Specialty Start Date End Date Dante Medina NP [address] [place] [address] PCP - General VIDYA 07/17/24 documented as of this encounter
--- OUTSIDE RECORDS SUMMARY | 2025-05-13 17:43 | XMS_ITS | Encounter Summary ---
Author Organization [facility] Address [address] [place] [address] Care Team Providers Care Line Haul Driver Name Role Phone Dante Medina NP Primary Care Provider Encounter Details Date Type Department Care Team (Late st Contact Info) Description 03/21/[address] [facility] - Main Lab [address] [place] [id number] Kelsea Powell MD [address] [place] [address] Type 2 diabetes mellitus without complications (CMS/HCC [...] mmol/L LAB CHEMISTRY METHOD 03/22/2024 11:53 AM [facility] Potassium 4.6 3.5 - 5.5 mmol/L LAB CHEMISTRY METHOD 03/22/2024 11:53 AM [facility] Chloride 97 96 - 110 mmol/L LAB CHEMISTRY METHOD 03/22/2024 11:53 AM [facility] CO2 30 21 - 32 mmol/L LAB CHEMISTRY METHOD 03/22/2024 11:53 AM [facility] Anion Gap 9 3 - 11 LAB CHEMISTRY METHOD 03/22/2024 11:53 AM [facility] Glucose 147(H) 70 - 100 mg/dL LAB CHEMISTRY METHOD 03/22/2024 11:53 AM [facility] BUN 12 5 - 25 mg/dL LAB CHEMISTRY METHOD 03/22/2024 11:53 AM [facility] Creatinine 0.66 0.50 - 1.10 mg/dL LAB CHEMISTRY METHOD 03/22/2024 11:53 AM [facility] eGFR 89 >=60 mL/min/1. 73m2 LAB CHEMISTRY METHOD 03/22/2024 11:53 AM [facility] Comment:Calculation based on the Chronic Kidney Disease Epidemiology Collaboration (CKD-EPI) equation refit without adjustment for race. BUN/Creatinine Ratio 18.2 LAB CHEMISTRY METHOD 03/22/2024 11:53 AM [facility] Calcium 9.5 8.5 - 10.5 mg/dL LAB CHEMISTRY METHOD 03/22/2024 11:53 AM [facility] Blood Venous blood specimen / Unknown Venipuncture / Unknown 03/22/2024 9:12 AM EST 03/22/2024 10:44 AM EST us Kelsea Powell MD LAB BLOOD ORDERABLES Final Resul t [facility] [address] [place] [address], [place] [phone] * (ABNORMAL) Complete blood count (03/22/2024 9:12 AM EST) WBC 11.0(H) 4.8 - 10.8 K/mcL LAB HEMETOLOGY METHOD 03/22/2024 11:05 AM [facility] RBC 4.80 3.80 - 4.80 M/mcL LAB HEMETOLOGY METHOD 03/22/2024 11:05 AM [facility] Hemoglobin 13.1 11.5 - 16.0 g/dL LAB HEMETOLOGY METHOD 03/22/2024 11:05 AM [facility] Hematocrit 41.5 35.0 - 47.0 % LAB HEMETOLOGY METHOD 03/22/2024 11:05 AM [facility] MCV 86.5 79.0 - 98.0 FL LAB HEMETOLOGY METHOD 03/22/2024 11:05 AM [facility] MCH 27.3 27.0 - 32.0 pcg LAB HEMETOLOGY METHOD 03/22/2024 11:05 AM [facility] MCHC 31.6(L) 32.0 - 37.0 g/dL LAB HEMETOLOGY METHOD 03/22/2024 11:05 AM [facility] RDW 14.4 11.0 - 15.0 % LAB HEMETOLOGY METHOD 03/22/2024 11:05 AM [facility] Platelets 388 130 - 400 K/mcL LAB HEMETOLOGY METHOD 03/22/2024 11:05 AM [facility] MPV 9.5 7.0 - 11.0 FL LAB HEMETOLOGY METHOD 03/22/2024 11:[address] [facility] NRBC 0.0 <1.0 % LAB HEMETOLOGY METHOD 03/22/2024 11:[address] [facility] NRBC Absolute 0.00 <0.10 K/mcL LAB HEMETOLOGY METHOD 03/22/2024 11:[address] [facility] Blood Venous blood specimen / Unknown Venipuncture / Unknown 03/22/2024 9:12 AM EST 03/22/2024 10:44 AM EST us Kelsea Powell MD LAB BLOOD ORDERABLES Final Resul t [facility] [address] [place] [address], documented in this encounter Visit Diagnoses Diagnosis Type 2 diabetes mellitus without complications (CMS/HCC V24, CMS/HCC V28) Urinary tract infection, site not specified documented in this encounter Care Teams Line Haul Driver Relationship Specialty Start Date End Date Dante Medina NP [address] [place] [address] PCP - General PACE 07/17/24 documented as of this encounter
--- OUTSIDE RECORDS SUMMARY | 2025-05-13 17:43 | XMS_ITS ---
Author Organization [address] Address [address] [place] [address] Phone Care Team Providers Care Steam Fitter Name Role Phone Dante Medina NP Primary Care Provider [phone] Program of [facility] Status:Enrolled (Active) Start date:07/14/2024 Enrollment date:07/14/2024 Related social drivers of health:Housing Instability, TH Health Literacy, Financial Risk, Transportation, Social Isolation, Food Risk Overview This episode will track PACE documentation. Case Team Name Relationship Phone Dante Medina CHILD LIFE THERAPIST Nurse Practitioner [phone] Katherine Mckeon Recreational Therapist Leda Acosta RN Lead Performance Support Analyst Mira Alexander RN Lead Performance Support Analyst Reyna Perry BANDING MACHINE OPERATOR Registered Nurse Junior Wolf OT Occupational Therapist Hitesh Martinez RN Registered Nurse Jody Jean RD Dietitian Ariela Steven PT Physical Therapist Parrish Ge [employer] Laboratory Mechanical Technician Katelynn Posey RN Lead Performance Support Analyst Sia Lozano RN Registered Nurse Amarilys Blair Laboratory Mechanical Technician [facility] Laboratory Mechanical Technician Bahman Goodson Spiritual Care Navya Rodríguez PT Physical Therapist Kaur Bobo OT Occupational Therapist Haylie YEPEZW Laboratory Mechanical Technician Jack Flynn PT Physical Therapist Irlanda Cabrera MD Primary Care Provider Continued Care and Services Coordination
== END 2025-05-13 16:18 | disposition home or self-care (01) ==
LOC: HO.HSM 15:49
PROVIDERS: PCP Nurse Practitioner; Visit Provider Psychiatry & Neurology Neurology
DX: G30.1 Alzheimer's disease with late onset (principal); F02.B0 Dementia in other diseases classified elsewhere, moderate, without behavioral disturbance, psychotic disturbance, mood disturbance, and anxiety
CPT/HCPCS: 99213

== ENCOUNTER → 2025-05-13 15:48 | Outpatient (BNVA) | payer OTHER, SELFPAY | PROVIDERS: PCP Nurse Practitioner; Visit Provider Psychiatry & Neurology Neurology | DX: G30.1 Alzheimer's disease with late onset (principal); F02.B0 Dementia in other diseases classified elsewhere, moderate, without behavioral disturbance, psychotic disturbance, mood disturbance, and anxiety; Z79.899 Other long term (current) drug therapy | CPT/HCPCS: 99212 ==